=== PATIENT | male | born 1980 | race Caucasian/White ===

== ENCOUNTER 2021-08-30 05:49 | Emergency (ER) | payer BC, SELFPAY ==
[2021-08-30 05:56] VITALS: BP 137/103; PULSE 73; RESP 18; O2SAT 97
--- NOTE | 2021-08-30 06:29 | ED.GENADULT ---
HPI - General Adult General Chief complaint: Extremity Injury, Lower Stated complaint: nerve pain radiating down leg Time Seen by Provider: 08/30/21 05:57 Source: patient, family and RN notes reviewed Mode of arrival: ambulatory Limitations: no limitations History of Present Illness HPI narrative: 41-year-old male presenting to the emergency department for evaluation of right lower back pain. Patient states that last night he began developing right lower back pain that radiated to his right hip and down his leg. Patient denies any prior history of back surgery or back injury. Patient states the pain does radiate down to his foot. Patient denies any numbness or weakness. Patient denies any falls or injuries. Related Data Allergies Allergy/AdvReac Type Severity Reaction Status Date / Time No Known Allergies Allergy Verified 08/30/21 06:32 Review of Systems Review of Systems: CONSTITUTIONAL: Denies fever, chills, or sweats. EYES: Denies visual changes, redness, or discharge. ENT: Denies rhinorrhea, congestion, sore throat, or otalgia. CARDIOVASCULAR: Denies chest pain, palpitations, or edema. RESPIRATORY: Denies cough or dyspnea. GASTROINTESTINAL: Denies abdominal pain, nausea, vomiting, or diarrhea. GENITOURINARY: Denies dysuria or hematuria. SKIN: Denies rash or itching. MUSCULOSKELETAL: See HPI NEUROLOGIC: Denies headache, numbness, or weakness. PSYCHIATRIC: Denies anxiety or depression. Exam Narrative: APPEARANCE: Well appearing, no pain, no distress, well-nourished. HEAD: normocephalic, atraumatic. EYES: PERRLA/EOMI, conjunctivae clear. NECK: Supple. No adenopathy, no masses. RESPIRATORY: Airway patent, respirations nonlabored. Clear to auscultation bilaterally, no rales, rhonchi, wheezing. CARDIOVASCULAR: Regular rate and rhythm without murmurs rubs or gallops. ABDOMINAL: Soft, nontender, nondistended, normal bowel sounds MUSCULOSKELETAL: Moves all extremities. Strength/ROM intact, No edema, No calf tenderness. No lower back tenderness to palpation. Patient does have tenderness over the right buttock consistent with sciatica. NEURO: Alert. Cranial nerves II through XII intact. Grossly intact SKIN: Warm, dry. Normal Color Course Course Emergency Course: Patient did feel some improvement with medications in the emergency department. Vital Signs Vital signs: Vital Signs Pulse Rate 73 08/30/21 05:56 Respiratory Rate 18 08/30/21 05:56 Blood Pressure 137/103 H 08/30/21 05:56 Pulse Oximetry 97 08/30/21 05:56 Pulse Rate 77 08/30/21 06:57 Respiratory Rate 16 08/30/21 06:57 Blood Pressure 142/78 H 08/30/21 06:57 Pulse Oximetry 98 08/30/21 06:57 Medical Decision Making Vital Signs Vital Signs: Vital Signs Pulse Rate 73 08/30/21 05:56 Respiratory Rate 18 08/30/21 05:56 Blood Pressure 137/103 H 08/30/21 05:56 Pulse Oximetry 97 08/30/21 05:56 Pulse Rate 77 08/30/21 06:57 Respiratory Rate 16 08/30/21 06:57 Blood Pressure 142/78 H 08/30/21 06:57 Pulse Oximetry 98 08/30/21 06:57 Discharge Plan Discharge Clinical Impression: Sciatica Patient Disposition: Home, Self-Care Condition: Stable Instructions: Antibiotic Form, Sciatica (ED) Additional Instructions: Naproxen scheduled for the next 3 to 5 days for pain control. Flexeril as needed for muscle spasm. Wolsey as needed for additional pain control. Have close follow-up with your primary care physician. If you have any worsening symptoms and please call or return to the emergency department. Prescriptions: New hydrocodone-acetaminophen 5-325 mg tablet 1 tablet PO Q8H PRN (Reason: pain) Qty: 14 RF: 0 cyclobenzaprine 10 mg tablet 10 mg PO BID PRN (Reason: muscle spasm) Qty: 14 RF: 0 Follow-up/Referrals: PHYSICIAN,INTERNET TECHNOLOGY MANAGER [Primary Care Provider] -
[2021-08-30] MEDS: CYCLOBENZAPRINE HCL 10 MG TABLET PO (06:44)
[2021-08-30] MEDS: KETOROLAC 30 MG/ML VIAL (*BKC) IM (06:45)
[2021-08-30 06:57] VITALS: BP 142/78; PULSE 77; RESP 16; O2SAT 98
== END 2021-08-30 06:58 | disposition home or self-care (01) ==
LOC: ANHED 06:46
PROVIDERS: Emergency Provider Emergency Medicine
DX: M54.41 Lumbago with sciatica, right side (principal)
CPT/HCPCS: 96372; 99283; A9270; J1885

== ENCOUNTER 2021-11-28 07:20 | Outpatient (CLI) | payer BC, SELFPAY ==
--- NOTE | ~2021-11-28 | MR_ITS ---
EXAMINATION: MR lumbar spine wo con DATE: 11/28/2021 07:46 INDICATION: Low back pain. Lumbar radiculopathy. TECHNIQUE: Magnetic resonance imaging (MRI) of the lumbar spine was performed without intravenous con trast. Sequences included sagittal T2-weighted FSE, sagittal T2-weighted FS FSE, sagittal T1-weighted FSE, and axial T2-weighted FSE. COMPARISON: None FINDINGS: There is 4 degrees levocurvature of lumbar spine. There is 3 mm retrolisthesis of L4 on L5 and L5 on S1. Vertebral body heights are normal. There is moderately decreased disc height at L3-L4 a nd severely decreased disc height at L4-L5 and L5-S1 with endplate remodeling. The distal spinal cord signal intensity is normal. The conus medullaris is at L1. The following disc levels are specificall y discussed: L1-L2: The disc does not extend beyond the endplate margin. There is mild bilateral facet joint osteo arthritis. There is no neural foraminal stenosis. There is no central canal stenosis. L2-L3: The disc is bulging and has an annular fissure. There is moderate right and mild left facet mendy int osteoarthritis. There is mild bilateral neural foraminal stenosis. There is mild central canal st enosis. L3-L4: The disc is bulging with superimposed central extrusion. There is severe right and moderate le ft facet joint osteoarthritis. There is mild lateral neural foraminal stenosis. There is mild central canal stenosis. L4-L5: The disc is bulging and has an annular fissure. There is mild bilateral facet joint osteoarthr itis. There is moderate bilateral neural foraminal stenosis. There is mild central canal stenosis. L5-S1: The disc is bulging and has an annular fissure. There is mild bilateral facet joint osteoarthr itis. There is mild bilateral neural foraminal stenosis. There is mild central canal stenosis. IMPRESSION: 1. Severe lumbar spondylosis. Reviewed, dictated and finalized at location A.
== END 2021-11-28 07:21 ==
PROVIDERS: PCP Nurse Practitioner; Visit Provider Nurse Practitioner
DX: M47.26 Other spondylosis with radiculopathy, lumbar region (principal)
CPT/HCPCS: 72148